=== PATIENT | female | born 1990 | race Caucasian/White ===

== ENCOUNTER 2018-11-19 11:39 | Emergency (ER) | payer BC, OTHER ==
[2018-11-19 11:52] VITALS: BP 104/57; PULSE 106; TEMP 99.9; BMI 28.8
[2018-11-19] MEDS ORDERED: ACETAMINOPHEN 325 MG TABLET (FP) PO ONE (12:44)
[2018-11-19] MEDS ORDERED: ACETAMINOPHEN 325 MG TABLET (FP) ONE (12:49)
--- NOTE | 2018-11-19 13:09 | PDOC ---
History of Present Illness - General Chief Complaint: Cold Symptoms Stated Complaint: FEVER, 34 WKS Time Seen by Provider: 11/19/18 12:35 History Source: Patient Exam Limitations: Clinical Condition - History of Present Illness Initial Comments: 11/19/18 13:06 Patient with no significant past medical history and 34 weeks present for evaluation of fever, body aches and nasal congestion since yesterday. Patient was seen by the labor and delivery floor this morning and cleared. Patient denies nausea or vomiting. Patient denies diarrhea, abdominal pain or vaginal bleeding. Patient denies any other symptoms Timing/Duration: 24 hours Past History - Past Medical History Allergies/Adverse Reactions: Allergies Allergy/AdvReac Type Severity Reaction Status Date / Time No Known Allergies Allergy Verified 11/19/18 11:13 Home Medications: Ambulatory Orders Oseltamivir Phosphate [Tamiflu] 75 mg PO BID 5 Days #10 capsule 11/19/18 COPD: No Dialysis: No Hypercholesterolemia: No - Surgical History Gastric Stapling: No - Immunization History Immunization Up to Date: No - Suicide/Smoking/Psychosocial Hx Smoking History: Never smoked Have you smoked in the past 12 months: No Information on smoking cessation initiated: No Hx Alcohol Use: No Drug/Substance Use Hx: No Review of Systems - Review of Systems Able to Perform ROS?: Yes Is the patient limited Lao proficient: No Constitutional: Yes: See HPI, Chills, Fever, Malaise HEENTM: Yes: Symptoms Reported, See HPI, Nose Congestion. No: Eye Pain, Blurred Vision, Tearing, Recent change in vision, Double Vision, Cataracts, Ear Pain, Ocular Prothesis, Ear Discharge, Nose Pain, Tinnitus, Nose Bleeding, Hearing Loss, Throat Pain, Throat Swelling, Mouth Pain, Dental Problems, Difficulty Swallowing, Mouth Swelling, Other Respiratory: No: Symptoms reported, See HPI, Cough, Orthopnea, Shortness of Breath, SOB with Exertion, SOB at Rest, Stridor, Wheezing, Productive cough, Hemoptysis, Other Cardiac (ROS): No: Symptoms Reported, See HPI, Chest Pain, Edema, Irregular Heart Rate, Lightheadedness, Palpitations, Syncope, Chest Tightness, Other ABD/GI: No: Nausea, Poor Fluid Intake, Vomiting All Other Systems: Reviewed and Negative *Physical Exam - Vital Signs Last Vital Signs Temp Pulse Resp BP Pulse Ox 99.9 F H 106 H 20 104/57 L 100 01/17/19 11:48 11/19/18 11:48 11/19/18 11:48 11/19/18 11:48 11/19/18 11:48 - Physical Exam Comments: 11/19/18 13:08 GENERAL: Well developed, well nourished. Awake and alert. No acute distress. HEENT: Normocephalic, atraumatic. PERRLA, EOMI. No conjunctival pallor. Sclera are non-icteric. Moist mucous membranes. Oropharynx is clear. NECK: Supple. Full ROM. CARDIOVASCULAR: Regular rate and rhythm. No murmurs, rubs, or gallops. Distal pulses are 2+ and symmetric. PULMONARY: No evidence of respiratory distress. Lungs clear to auscultation bilaterally. No wheezing, rales or rhonchi. ABDOMINAL: 34 weeks gravid abdomen.Soft. Non-tender. No rebound or guarding. Normoactive bowel sounds. MUSCULOSKELETAL Normal range of motion at all joints. EXTREMITIES: No cyanosis. No clubbing. No edema. No calf tenderness. SKIN: Warm and dry. Normal capillary refill. No rashes. NEUROLOGICAL: Alert, awake, appropriate. Gait is normal without ataxia. PSYCHIATRIC: Cooperative. Good eye contact. Appropriate mood General Appearance: Yes: Nourished, Appropriately Dressed. No: Apparent Distress Moderate Sedation - Procedure Monitoring Vital Signs: Procedure Monitoring Vital Signs Temperature 99.9 F H 11/19/18 11:48 Pulse Rate 106 H 11/19/18 11:48 Respiratory Rate 20 11/19/18 11:48 Blood Pressure 104/57 L 11/19/18 11:48 O2 Sat by Pulse Oximetry (%) 100 11/19/18 11:48 ED Treatment Course - Medications Given in the ED: ED Medications Discontinued Medications Generic Name Dose Route Start Last Admin Trade Name Freq PRN Reason Stop Dose Admin Acetaminophen 650 mg 11/19/18 12:44 11/19/18 12:49 Tylenol - PO 11/19/18 12:45 650 mg ONCE ONE Administration Medical Decision Making - Medical Decision Making 11/19/18 13:22 Patient 34 weeks with no significant past medical history present with complaint of 24 hour history of bodyaches, nasal congestion and fever. Patient seen and cleared by OB on the labor floor. Lungs clear to auscultation bilateral and patient with low-grade fever of 99.7 F oral. Rapid strep and rapid flu test was negative. Tylenol 650 mg by mouth given for fever. Patient stable for outpatient treatment for viral syndrome with PCP follow-up. *DC/Admit/Observation/Transfer Diagnosis at time of Disposition: Viral syndrome URI (upper respiratory infection) Qualifiers: URI type: unspecified viral URI Qualified Code(s): J06.9 - Acute upper respiratory infection, unspecified - Discharge Dispostion Disposition: HOME Condition at time of disposition: Stable Decision to Admit order: No - Prescriptions Prescriptions: Oseltamivir Phosphate [Tamiflu] 75 mg PO BID 5 Days #10 capsule - Referrals Referrals: Altagracia Lopez MD [Primary Care Provider] - - Patient Instructions Printed Discharge Instructions: DI for Viral Upper Respiratory Infection -- Adult Additional Instructions: Your flu and strep test was negative. Take medication as prescribed. Increase fluid intake. Follow-up with primary care - Post Discharge Activity
== END 2018-11-19 13:25 | disposition home or self-care (01) ==
LOC: JERFT 11:39
DX: O26.893 Other specified pregnancy related conditions, third trimester (principal); O99.513 Diseases of the respiratory system complicating pregnancy, third trimester; O98.513 Other viral diseases complicating pregnancy, third trimester; J06.9 Acute upper respiratory infection, unspecified; B33.8 Other specified viral diseases; Z3A.34 34 weeks gestation of pregnancy
CPT/HCPCS: 87070; 87804; 87880; 99281-25

== ENCOUNTER 2018-12-29 09:15 | Inpatient (IN) | payer BC, OTHER ==
[~2018-12-29 09:15] MED LIST: ELECTROLYTE-148 SOLN 1,000 ML IV SCH
[2018-12-29 09:50] VITALS: BMI 29.9
[2018-12-29 10:41] LABS: BASO % 0.4 % (0-2.0); EOS % 0.5 % (0-4.5); HEMATOCRIT 37.5 % (32.4-45.2); HEMOGLOBIN 13.2 GM/dL (10.7-15.3); LYMPH % 17.3 % (8-40); MCH 34.3 pg (25.7-33.7); MCHC 35.2 g/dl (32.0-36.0); MEAN CELL VOLUME 97.5 fl (80-96); MEAN PLT VOLUME 7.2 fl (7.5-11.1); MONO % 5.2 % (3.8-10.2); NEUT % 76.6 % (42.8-82.8); PLATELET COUNT 308 K/MM3 (134-434); RBC 3.84 M/mm3 (3.60-5.2); RDW 12.5 % (11.6-15.6); WHITE BLOOD COUNT 14.7 K/mm3 (4.0-10.0)
[2018-12-29 11:04] LABS: INR 1.05 (0.83-1.09); PROTHROMBIN TIME (PATIENT) 12.4 SEC (9.7-13.0)
[2018-12-29 11:07] LABS: ACTIVATED PTT 26.7 SECONDS (25.2-36.5)
[2018-12-29 11:13] LABS: ANION GAP 11 MMOL/L (8-16); BLOOD UREA NITROGEN 5 mg/dL (7-18); CALCIUM 8.7 mg/dL (8.5-10.1); CHLORIDE 106 mmol/L (98-107); CO2 22 mmol/L (21-32); CREATININE 0.6 mg/dL (0.55-1.3); GLUCOSE,RANDOM 67 mg/dL (74-106); POTASSIUM 4.1 mmol/L (3.5-5.1); SODIUM 139 mmol/L (136-145)
[2018-12-29] MEDS ORDERED: FENTANYL/BUPIVACAINE/NS/PF - PCEA - 50 ML DISP.SYRIN EP ONE ×3 (11:19→19:08)
[2018-12-29] MEDS ORDERED: TUBERCULIN PPD 5 TU/0.1ML SYRINGE (IN PATIENT USE ONLY) ID ONE (12:00)
--- NOTE | 2018-12-29 12:13 | HP ---
Past Medical History - Primary Care Physician PCP:: Almaz Lunsford - Admission Chief Complaint: Labor History of Present Illness: 28 yo EDC 12/29/18 ega 40 weeks admitted in labor no vaginal bleeding no rom no pain History Source: Patient - Past Medical History ...: 1 ...Para: 0 ...Term: 0 ...: 0 ...Spon : 0 ...Induced : 0 ...Multiple Gestation: 0 ...LMP: 03/24/18 ... Weeks Gestation by Dates: 40.0 ...EDC by Dates: 12/29/18 ...EDC by Sono: 01/03/19 - Past Surgical History Past Surgical History: Yes: None Hx Myomectomy: No Hx Transabdominal Cerclage: No - Smoking History Smoking history: Never smoked Have you smoked in the past 12 months: No - Alcohol/Substance Use Hx Alcohol Use: No History of Substance Use: reports: None - Social History Usual Living Arrangement: Yes: With Spouse Home Medications - Allergies Allergies/Adverse Reactions: Allergies Allergy/AdvReac Type Severity Reaction Status Date / Time No Known Allergies Allergy Verified 12/29/18 09:57 - Home Medications Home Medications: Ambulatory Orders Ibuprofen [Ibu] 600 mg PO QID PRN #30 tablet 12/29/18 Tablet 1 tab PO DAILY 12/29/18 Review of Systems - Review of Systems Constitutional: reports: No Symptoms Eyes: reports: No Symptoms HENT: reports: No Symptoms Neck: reports: No Symptoms Cardiovascular: reports: No Symptoms Respiratory: reports: No Symptoms Gastrointestinal: reports: Abdominal Pain Genitourinary: reports: No Symptoms Breasts: reports: No Symptoms Reported Musculoskeletal: reports: No Symptoms Integumentary: reports: No Symptoms Neurological: reports: No Symptoms Endocrine: reports: No Symptoms Hematology/Lymphatic: reports: No Symptoms Psychiatric: reports: No Symptoms Physical Exam - Maternity Vital Signs: Vital Signs Temperature 97.8 F 12/29/18 11:00 Pulse Rate 87 12/29/18 11:00 Respiratory Rate 20 12/29/18 11:00 Blood Pressure 127/72 12/29/18 11:00 O2 Sat by Pulse Oximetry (%) Constitutional: Yes: Well Nourished, No Distress, Mild Distress Eyes: Yes: WNL HENT: Yes: WNL Neck: Yes: WNL Cardiovascular: Yes: WNL Lungs: Clear to auscultation Breast(s): Yes: WNL - Abdominal Exam/OB Fundal Height: 40 Number of Fetuses: Single Presentation: Vertex Contractions: Yes Category: I - Vaginal Exam/OB Vaginal Bleediing: No Dilatation (cm): 3-4 Amniotic Membrane Status: Intact Presentation: Vertex/Position - Physical Exam Musculoskeletal: Yes: WNL Extremities: Yes: WNL Edema: Yes Edema: LLE: Trace, RLE: Trace Psychiatric: Yes: WNL, Alert, Oriented - Labs Lab Results: CBC, BMP 12/29/18 10:25 12/29/18 10:25 Hemorrhage Risk Assessment - Risk Factors Risk Score: 0 Risk Level: Low Risk Problem List - Problems (1) Labor established Code(s): [id number] - Assessment/Plan IUP at 40 week labor Cat1 desires epidural Plan epidural
[2018-12-29] MEDS ORDERED: ELECTROLYTE-148 SOLN 1,000 ML IV SCH (12:15)
[2018-12-29] MEDS ORDERED: FENTANYL/BUPIVACAINE/NS/PF - PCEA - 50 ML DISP.SYRIN EP SCH (14:00)
[2018-12-29] MEDS ORDERED: BUPIVACAINE HCL/PF 0.25% (2.5MG/ML) 10 ML VIAL ONE (17:26)
--- NOTE | 2018-12-29 20:24 | PN ---
Ante-Partal Exam - Subjective Subjective: Pt with epidural comfortable +leaking fluid Vital Signs: Vital Signs Temperature 98.6 F 12/29/18 20:00 Pulse Rate 102 H 12/29/18 19:15 Respiratory Rate 18 12/29/18 19:15 Blood Pressure 110/67 12/29/18 19:15 O2 Sat by Pulse Oximetry (%) 100 12/29/18 19:15 Bleeding: No Headache: No Visual changes: No Right upper quadrant pain: No - Contractions Contractions: Yes Regularity: Regular Intensity: Moderate Monitor Mode: External - Exam during Labor Category: I Monitor Accelerations: Present Monitor Decelerations: None Exam: Vaginal Dilatation (cm): 8-9 Effacement (%): 100 Amniotic Membrane Status: Ruptured Amniotic Fluid: Clear Presentation: Vertex Station: 0 - Intrapartum Hemorrhage Risk Risk Score: 0 Risk Level: Low Risk - Assessment/Plan Assessment/Plan: IUP at 40 week active labor comfortable with epidural Cat 1 Plan anticipate vaginal delivery
--- NOTE | 2018-12-29 20:50 | PN ---
Ante-Partal Exam - Subjective Subjective: Pt doing well Vital Signs: Vital Signs Temperature 98.6 F 12/29/18 20:00 Pulse Rate 102 H 12/29/18 19:15 Respiratory Rate 18 12/29/18 19:15 Blood Pressure 110/67 12/29/18 19:15 O2 Sat by Pulse Oximetry (%) 100 12/29/18 19:15 Bleeding: No Headache: No Visual changes: No Right upper quadrant pain: No - Contractions Contractions: Yes Regularity: Regular Intensity: Moderate Monitor Mode: External - Exam during Labor Category: I Monitor Accelerations: Present Exam: Vaginal Amniotic Membrane Status: Ruptured Meconium Staining: Light Presentation: Vertex - Intrapartum Hemorrhage Risk Risk Score: 0 Risk Level: Low Risk - Assessment/Plan Assessment/Plan: IUP @ 40 week srom Cat 1 Plan
[2018-12-29] MEDS ORDERED: OXYTOCIN 20 UNITS in 0.9% NS 20 UNIT/1,000 ML INFUS.BAG IV ONE (21:02)
[2018-12-29] MEDS ORDERED: LIDOCAINE HCL 1% PRESERVATIVE FREE - 30ML VIAL ONE (22:54)
--- NOTE | 2018-12-29 23:26 | PN ---
Delivery - Delivery Vaginal Delivery: No Problems Type of Anesthesia: Epidural Episiotomy/Laceration: Midline, Vaginal Extension/lac (Pt placed in Mcrobert position OA nuchal x1 live male delivered) EBL (cc): 400 Delivery, Single - Stages of Labor Placenta: Yes: Spontaneous - Condition of Infant Infant Gender: Male Position: OA - Feeding Plan Initial Plan: Exclusive throughout hospitalization
[2018-12-29 23:27] LABS: ARTERIAL BLOOD GAS BASE EXCESS -8.1 meq/l (-2-2)
[2018-12-29] MEDS ORDERED: METHYLERGONOVINE MALEATE 0.2 MG/1 ML AMP IM PRN (23:27)
[2018-12-29] MEDS ORDERED: BENZOCAINE 20% 57 GM BOTTLE TP PRN (23:27)
[2018-12-29] MEDS ORDERED: BENZOCAINE 28 GM HEMORRHOIDAL OINTMENT PR PRN (23:27)
[2018-12-29] MEDS ORDERED: BISACODYL 10 MG SUPP.RECT RC PRN (23:27)
[2018-12-29] MEDS ORDERED: WITCH HAZEL 50% (TUCKS) 40 PAD/JAR PAD TP PRN (23:27)
[2018-12-29 23:30] LABS: VENOUS PH 7.26 (7.32-7.42); VENOUS PO2 23.2 mmHg (28-48)
[2018-12-29] MEDS ORDERED: OXYTOCIN 20 UNITS in 0.9% NS 20 UNIT/1,000 ML INFUS.BAG IV SCH (23:30)
[2018-12-29 23:33] LABS: ARTERIAL BLOOD GAS pH 7.19 (7.35-7.45)
[2018-12-29 23:34] LABS: ARTERIAL BLD GAS O2 SATURATION 50.4 % (90-98.9)
[2018-12-30] MEDS ORDERED: OXYTOCIN 20 UNITS in 0.9% NS 20 UNIT/1,000 ML INFUS.BAG IV ONE (00:46)
--- NOTE | 2018-12-30 06:38 | PN ---
Post Note - Post Date of Delivery: 12/30/18 Post Day: 1 Vital Signs: Vital Signs - 24 hr 12/29/18 12/29/18 12/29/18 09:15 11:00 12:10 Temperature 98.2 F 97.8 F Pulse Rate 89 87 90 Respiratory 17 20 18 Rate Blood Pressure 128/74 127/72 123/77 O2 Sat by Pulse 99 Oximetry (%) 12/29/18 12/29/18 12/29/18 12:15 12:20 12:25 Temperature Pulse Rate 85 93 H 94 H Respiratory 17 17 18 Rate Blood Pressure 130/67 124/65 125/70 O2 Sat by Pulse 100 99 99 Oximetry (%) 12/29/18 12/29/18 12/29/18 12:30 12:45 13:00 Temperature Pulse Rate 97 H 76 85 Respiratory 17 17 17 Rate Blood Pressure 126/68 140/74 132/63 O2 Sat by Pulse 100 100 100 Oximetry (%) 12/29/18 12/29/18 12/29/18 13:15 13:30 13:45 Temperature Pulse Rate 102 H 94 H 74 Respiratory 18 18 17 Rate Blood Pressure 123/68 123/70 115/67 O2 Sat by Pulse 100 99 100 Oximetry (%) 12/29/18 12/29/18 12/29/18 14:00 14:15 14:30 Temperature 98.1 F Pulse Rate 79 80 87 Respiratory 17 17 18 Rate Blood Pressure 133/68 133/76 128/67 O2 Sat by Pulse 100 100 100 Oximetry (%) 12/29/18 12/29/18 12/29/18 14:45 15:00 15:15 Temperature Pulse Rate 79 80 93 H Respiratory 17 17 17 Rate Blood Pressure 132/60 134/67 145/67 O2 Sat by Pulse 100 99 98 Oximetry (%) 12/29/18 12/29/18 12/29/18 15:30 15:45 16:00 Temperature Pulse Rate 101 H 88 92 H Respiratory 17 17 17 Rate Blood Pressure 142/68 104/74 128/63 O2 Sat by Pulse 100 99 99 Oximetry (%) 12/29/18 12/29/18 12/29/18 16:15 16:30 16:45 Temperature Pulse Rate 91 H 106 H 113 H Respiratory 17 18 18 Rate Blood Pressure 126/76 135/80 139/55 L O2 Sat by Pulse 98 98 98 Oximetry (%) 12/29/18 12/29/18 12/29/18 17:00 17:15 17:30 Temperature Pulse Rate 88 92 H 80 Respiratory 17 17 17 Rate Blood Pressure 122/69 118/57 L 129/73 O2 Sat by Pulse 99 100 100 Oximetry (%) 12/29/18 12/29/18 12/29/18 17:45 18:00 18:15 Temperature 98.1 F Pulse Rate 87 82 96 H Respiratory 17 17 17 Rate Blood Pressure 136/70 119/70 129/57 L O2 Sat by Pulse 100 99 100 Oximetry (%) 12/29/18 12/29/18 12/29/18 18:30 18:45 19:00 Temperature Pulse Rate 95 H 90 84 Respiratory 18 17 18 Rate Blood Pressure 100/68 122/72 116/74 O2 Sat by Pulse 99 99 99 Oximetry (%) 12/29/18 12/29/18 12/29/18 19:15 19:30 19:45 Temperature Pulse Rate 102 H 102 H 100 H Respiratory 18 18 18 Rate Blood Pressure 110/67 110/67 117/52 L O2 Sat by Pulse 100 100 100 Oximetry (%) 12/29/18 12/29/18 12/29/18 20:00 20:15 20:30 Temperature 98.6 F Pulse Rate 104 H 97 H 101 H Respiratory 18 18 18 Rate Blood Pressure 95/58 L 114/50 L 111/70 O2 Sat by Pulse 100 100 100 Oximetry (%) 12/29/18 12/29/18 12/29/18 20:45 21:00 21:15 Temperature Pulse Rate 102 H 112 H 131 H Respiratory 18 18 18 Rate Blood Pressure 100/78 124/80 127/69 O2 Sat by Pulse 100 100 100 Oximetry (%) 12/29/18 12/29/18 12/29/18 21:30 21:45 22:00 Temperature Pulse Rate 123 H 222 H 110 H Respiratory 18 18 18 Rate Blood Pressure 131/81 141/71 147/74 O2 Sat by Pulse 100 100 100 Oximetry (%) 12/29/18 12/29/18 12/30/18 23:30 23:45 00:00 Temperature 98.3 F Pulse Rate 110 H 114 H 107 H Respiratory 18 18 18 Rate Blood Pressure 123/63 125/71 122/68 O2 Sat by Pulse 100 100 100 Oximetry (%) 12/30/18 12/30/18 12/30/18 00:15 00:30 02:31 Temperature 98.3 F 99.5 F Pulse Rate 112 H 113 H 95 H Respiratory 18 18 20 Rate Blood Pressure 93/72 103/72 126/70 O2 Sat by Pulse 100 100 Oximetry (%) 12/30/18 06:20 Temperature 98.5 F Pulse Rate 95 H Respiratory 20 Rate Blood Pressure 126/68 O2 Sat by Pulse Oximetry (%) Labs: Laboratory Results - last 24 hr 12/29/18 12/29/18 12/29/18 10:25 10:25 10:25 WBC 14.7 H RBC 3.84 Hgb 13.2 Hct 37.5 MCV 97.5 H MCH 34.3 H MCHC 35.2 RDW 12.5 Plt Count 308 MPV 7.2 L Absolute Neuts (auto) 11.3 H Neutrophils % 76.6 Lymphocytes % 17.3 Monocytes % 5.2 Eosinophils % 0.5 Basophils % 0.4 Nucleated RBC % 0 PT with INR 12.40 INR 1.05 PTT (Actin FS) 26.7 ABG pH ABG pCO2 at Pt Temp ABG pO2 at Pt Temp ABG HCO3 ABG O2 Sat (Measured) ABG O2 Content ABG Base Excess VBG pH POC VBG pCO2 POC VBG pO2 Mixed VBG HCO3 Sodium 139 Potassium 4.1 Chloride 106 Carbon Dioxide 22 Anion Gap 11 BUN 5 L Creatinine 0.6 Creat Clearance w eGFR > 60 Random Glucose 67 L Calcium 8.7 RPR Titer Blood Type Antibody Screen 12/29/18 12/29/18 12/29/18 10:25 10:25 11:45 WBC RBC Hgb Hct MCV MCH MCHC RDW Plt Count MPV Absolute Neuts (auto) Neutrophils % Lymphocytes % Monocytes % Eosinophils % Basophils % Nucleated RBC % PT with INR INR PTT (Actin FS) ABG pH ABG pCO2 at Pt Temp ABG pO2 at Pt Temp ABG HCO3 ABG O2 Sat (Measured) ABG O2 Content ABG Base Excess VBG pH POC VBG pCO2 POC VBG pO2 Mixed VBG HCO3 Sodium Potassium Chloride Carbon Dioxide Anion Gap BUN Creatinine Creat Clearance w eGFR Random Glucose Calcium RPR Titer Nonreactive Blood Type A POSITIVE A POSITIVE Antibody Screen Negative 12/29/18 12/29/18 23:00 23:00 WBC RBC Hgb Hct MCV MCH MCHC RDW Plt Count MPV Absolute Neuts (auto) Neutrophils % Lymphocytes % Monocytes % Eosinophils % Basophils % Nucleated RBC % PT with INR INR PTT (Actin FS) ABG pH 7.19 L* ABG pCO2 at Pt Temp 56.0 H ABG pO2 at Pt Temp 29.0 L* ABG HCO3 20.7 L ABG O2 Sat (Measured) 50.4 L* ABG O2 Content 11.0 L ABG Base Excess -8.1 L VBG pH 7.26 L POC VBG pCO2 46.0 POC VBG pO2 23.2 L Mixed VBG HCO3 20.1 Sodium Potassium Chloride Carbon Dioxide Anion Gap BUN Creatinine Creat Clearance w eGFR Random Glucose Calcium RPR Titer Blood Type Antibody Screen - Subjective Subjective: No Complaints - Objective Afebrile: Yes Breast: Not engorged Abdomen: Soft, Non-tender Uterus: Fundus firm, Non-tender Vagina: Scant lochia Extremities: Non-tender - Assessment/Plan (1) Labor established Assessment: S/P Normal Plan: Routine Care
[2018-12-30 07:35] LABS: BASO % 0.2 % (0-2.0); EOS % 0.1 % (0-4.5); HEMATOCRIT 29.1 % (32.4-45.2); HEMOGLOBIN 10.1 GM/dL (10.7-15.3); LYMPH % 11.1 % (8-40); MCH 33.6 pg (25.7-33.7); MCHC 34.6 g/dl (32.0-36.0); MEAN CELL VOLUME 97.1 fl (80-96); MEAN PLT VOLUME 7.2 fl (7.5-11.1); NEUT % 83.6 % (42.8-82.8); PLATELET COUNT 236 K/MM3 (134-434); RBC 2.99 M/mm3 (3.60-5.2); RDW 12.8 % (11.6-15.6); WHITE BLOOD COUNT 24.8 K/mm3 (4.0-10.0)
[2018-12-30] MEDS: IBUPROFEN 600 MG TABLET (FP) PO PRN ×3 (07:45→21:54)
[2018-12-30] MEDS: ACETAMINOPHEN 325 MG TABLET (FP) PO PRN ×3 (07:45→21:54)
[2018-12-30 10:34] LABS: ANISOCYTOSIS 0; MACROCYTOSIS 1+; PLATELET ESTIMATE NORMAL
[2018-12-31] MEDS: IBUPROFEN 600 MG TABLET (FP) PO PRN (09:48)
[2018-12-31] MEDS: ACETAMINOPHEN 325 MG TABLET (FP) PO PRN (09:49)
--- NOTE | 2018-12-31 09:57 | DS ---
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: Vital Signs Temperature 97.8 F 12/30/18 21:20 Pulse Rate 84 12/30/18 21:20 Respiratory Rate 16 12/30/18 18:02 Blood Pressure 121/67 12/30/18 21:20 O2 Sat by Pulse Oximetry (%) 98 12/30/18 21:36 Constitutional: Yes: Well Nourished, No Distress Neck: Yes: WNL Cardiovascular: Yes: WNL Respiratory: Yes: WNL, Regular, CTA Bilaterally Gastrointestinal: Yes: WNL, Normal Bowel Sounds, Soft ....Post : Yes: Uterus firm, Uterus non-tender Breast(s): Yes: WNL Musculoskeletal: Yes: WNL Extremities: Yes: WNL Edema: No Neurological: Yes: WNL, Alert, Oriented Labs: CBC, BMP 12/30/18 07:00 12/29/18 10:25 Delivery - Delivery Vaginal Delivery: No Problems Type of Anesthesia: Epidural Episiotomy/Laceration: Midline, Vaginal Extension/lac (Pt placed in Mcrobert position OA nuchal x1 live male infant delivered) EBL (cc): 400 Delivery, Single - Stages of Labor Date 1st Stage Initiatied: 12/29/18 Time 1st Stage Initiated: 12:10 Date 2nd Stage Initiated: 12/29/18 Time 2nd Stage Initiated: 22:30 Date of Delivery: 12/30/18 Time of Delivery: 22:55 Time Placenta Delivered: 22:57 Placenta: Yes: Spontaneous - Condition of Infant Sprigger/Test Department Helper Present: No Infant Gender: Male Weight: 8 lb 6 oz Position: OA Total Hours ROM (Hrs/Mins): 5h 15m - 1 Minute Total Score: 9 10 Minutes Total Score: 9 - [place] Feeding Plan Initial Plan: Exclusive throughout hospitalization Discharge Summary Reason For Visit: LABOR ADMISSION Current Active Problems Labor established (Acute) Procedures: Principal: Normal vaginal delivery Condition: Good - Instructions Referrals: Almaz Lunsford MD [Staff Physician] - Disposition: HOME - Home Medications Comprehensive Discharge Medication List: Ambulatory Orders Ibuprofen [Ibu] 600 mg PO QID PRN #30 tablet 12/29/18 Tablet 1 tab PO DAILY 12/29/18
[2018-12-31 10:58] VITALS: BP 129/63; PULSE 89; TEMP 97.5
== END 2018-12-31 13:15 | disposition home or self-care (01) | DRG 807 ==
LOC: JLDR 09:15 → J3W 12-30 01:15
PROVIDERS: ADMIT Obstetrics & Gynecology; ATTEND Obstetrics & Gynecology
PROC: 10E0XZZ Delivery of Products of Conception, External Approach (ICD-10-PCS; principal; 2018-12-29)
PROC: 0W8NXZZ Division of Female Perineum, External Approach (ICD-10-PCS; 2018-12-29)
PROC: 0HQ9XZZ Repair Perineum Skin, External Approach (ICD-10-PCS; 2018-12-29)
DX: O70.0 First degree perineal laceration during delivery (principal); Z37.0 Single live birth; Z3A.40 40 weeks gestation of pregnancy
CPT/HCPCS: 36415; 36600; 59409; 80048; 82803; 85025; 85610; 85730; 86593; 86850; 86900; 86901